=== PATIENT | male | born 1955 | race Caucasian/White ===

== ENCOUNTER 2017-01-07 08:43 | Emergency (ER) | payer OTHER ==
[~2017-01-07 08:43] MED LIST: ATIVAN0.5 MG PO; BENTYL20 MG PO; CIPRO 500MG TA500 MG PO; DICYCLOMINE HCL20 MG PO; DOXYCYCLINE MO100 MG PO; FAMOTIDINE20 MG PO; FLAG500 PO; FLEXERIL10 MG PO; FOLIC ACID 1 MG PO; HYDRALAZINE HYD10 MG PO; LIPITOR 10MG10 MG PO; LISINOPRIL20 M1 PO; LISINOPRIL20 MG PO; LISINOPRIL40 MG PO; METOCLOPRAMIDE10 MG PO; MOTRIN 600 MG600 MG PO; MOTRIN600 MG PO; NORVASC 2.5 MG2.5 MG PO; NORVASC 5MG TAB5 MG PO; PAROXETINE HYDR20 MG; PAROXETINE HYDR20 MG PO; PEPCID 20MG TAB20 MG PO; PERCOCET 325 MG1 TA2 PO; PRILOSEC 20MG C20 MG PO; PROTONIX 40MG T40 MG; PROTONIX 40MG T40 MG PO; RESTASIS 0.4 M0.4 ML OPH; SERTRALINE HYDR50 MG; SERTRALINE HYDR50 MG PO; TYLENOL TAB 32325 MG PO; Theragran Vitamins PO; VITAMIN B1100 MG PO
--- NOTE | 2017-01-07 09:13 | ED GI/GU/ABDOMINAL COMPLAINT ---
History of Present Illness General Chief Complaint: Abdominal Pain/Flank Pain Stated Complaint: ABD PAIN Source: patient, old records Exam Limitations: no limitations Vital Signs & Intake/Output Vital Signs & Intake/Output Vital Signs Date Time Temp Pulse Resp B/P B/P Pulse O2 O2 Flow FiO2 Mean Ox Delivery Rate 01/07 1415 98.2 94 18 168/100 96 Room Air 01/07 1049 92 18 170/95 97 Room Air 01/07 0921 98 Room Air 01/07 0846 97.9 98 16 169/113 98 Room Air Allergies Coded Allergies: hydromorphone (Mild, ITCHING 11/11/15) Reconcile Medications Famotidine (Pepcid) 20 MG TABLET 1 TAB PO BID gastritis Hyoscyamine Sulfate (Levsin-Sl) 0.125 MG TAB.SUBL 1-2 TAB SL Q4P PRN gastritis Lisinopril 20 MG TABLET 1 TAB PO DAILY BP (Reported) Ondansetron (Zofran Odt) 4 MG TAB.RAPDIS 1 TAB SL TID PRN nausea Triage Note: PT C/O ABD PAIN X2 DAYS. STATED HE WAS DRINKING ETOH FOR A FEW DAYS AND WHEN HE STOPPED THE PAIN STARTED. STATED HE STARTED TO VOMIT THIS AM AND HAD BLOOD MIXED IN IT. REPORT HAVING DIARRHEA WELL. DENIES ANY CP/SOB. Triage Nurses Notes Reviewed? yes Onset: Just prior to arrival Duration: hour(s):, constant, continues in ED Timing: recent history Quality/Severity: aching, cramping, moderate, vomiting Location: epigastric Radiation: no radiation Activities at Onset: none Prior Abdominal Problems: none Past Sexual History: Unobtainable at this time No Modifying Factors: none Associated Symptoms: abdominal pain, loss of appetite, nausea/vomiting HPI: 2 weeks prior to admission patient started drinking alcohol again. Several hours prior to admission he developed epigastric burning constant moderate pain loss of appetite nausea vomiting. Reports some blood with vomit. He denies fever chills chest pain cough shortness of breath headache dysuria rash. Past History Travel History Traveled to [place] past 21 day No Medical History Any Pertinent Medical History? see below for history Neurological: NONE EENT: NONE Cardiovascular: hypertension Respiratory: NONE Gastrointestinal: ACID REFLUX Hepatic: NONE Renal: NONE Musculoskeletal: NONE Psychiatric: anxiety, depression, ETOH Endocrine: NONE Blood Disorders: NONE Cancer(s): NONE Other Medical Hx: Kidney stones History of MRSA: No History of VRE: No History of CDIFF: No Surgical History Surgical History: non-contributory Psychosocial History Who do you live with Family Services at Home None What is your primary language Taiwanese Tobacco Use: Never used ETOH Use: occasional use Family History Family History, If Any: MOTHER FH: HTN (hypertension) Hx Contributory? No Review of Systems Review of Systems Constitutional: Reports: no symptoms. EENTM: Reports: no symptoms. Respiratory: Reports: no symptoms. Cardiovascular: Reports: no symptoms. GI: Reports: see HPI, abdominal pain, nausea, vomiting. Genitourinary: Reports: no symptoms. Musculoskeletal: Reports: no symptoms. Skin: Reports: no symptoms. Neurological/Psychological: Reports: no symptoms. Hematologic/Endocrine: Reports: no symptoms. Immunologic/Allergic: Reports: no symptoms. All Other Systems: Reviewed and Negative Physical Exam Physical Exam General Appearance: well developed/nourished, alert, awake, anxious, moderate distress Head: atraumatic, normal appearance Eyes: Bilateral: normal appearance, PERRL, EOMI, normal inspection. Ears, Nose, Throat, Mouth: hearing grossly normal, moist mucous membrane Neck: normal inspection, supple, full range of motion, normal alignment Respiratory: normal breath sounds, chest non-tender, no respiratory distress, quiet respiration, lungs clear Cardiovascular: regular rate/rhythm, normal peripheral pulses, norml femoral pulses equa Peripheral Pulses: 4+ carotid (R), 4+ carotid (L) Gastrointestinal: normal bowel sounds, soft, non-tender, no organomegaly, hernia (right inguinal reducible) Male Genitals: normal genitalia Back: normal inspection, normal range of motion, no vertebral tenderness Extremities: normal range of motion, no ligament instability Neurologic/Psych: no motor/sensory deficits, awake, alert, oriented x 3, normal gait, normal mood/affect Skin: intact, normal color, warm/dry Core Measures ACS in differential dx? No Severe Sepsis Present: No Septic Shock Present: No Progress Differential Diagnosis: biliary colic, gastritis, pancreatitis Plan of Care: Orders Procedure Date/time Status MAGNESIUM 01/07 09 Complete LIPASE 01/07 907 Complete ETHANOL 01/07 907 Complete COMPREHENSIVE METABOLIC PANEL 01/07 907 Complete CBC WITHOUT DIFFERENTIAL 01/07 907 Complete Laboratory Tests 01/07/17 0914: Anion Gap 17 H, Estimated GFR > 60, BUN/Creatinine Ratio 27.5 H, Glucose 115 H, Calcium 8.5, Magnesium 2.4 H, Total Bilirubin 1.1, AST 48, ALT 46, Alkaline Phosphatase 76, Total Protein 7.2, Albumin 4.4, Globulin 2.8, Albumin/Globulin Ratio 1.6, Lipase 140, CBC w Diff NO MAN DIFF REQ, RBC 5.01, MCV 93.5, MCH 31.4 H, RDW 15.1 H, MPV 7.8, Gran % 70.6, Lymphocytes % 21.4, Monocytes % 7.0, Eosinophils % 0.5, Basophils % 0.5, Absolute Granulocytes 5.1, Absolute Lymphocytes 1.5, Absolute Monocytes 0.5, Absolute Eosinophils 0, Absolute Basophils 0, PUBS MCHC 33.6, Serum Alcohol 212.0 Initial ED EKG: none Departure Departure Time of Disposition: 1432 Disposition: HOME OR SELF CARE Condition: Stable Clinical Impression Primary Impression: Acute alcoholic gastritis Referrals: EDINSON DIAS,JAKE Gaston Departure Forms: Customer Survey General Discharge Information RELEASE- WORK Prescriptions: Current Visit Scripts Ondansetron (Zofran Odt) 1 TAB SL TID PRN nausea #15 TAB Famotidine (Pepcid) 1 TAB PO BID #60 TAB Hyoscyamine Sulfate (Levsin-Sl) 1-2 TAB SL Q4P PRN gastritis #30 TAB
[2017-01-07 09:31] LABS: ABSOLUTE BASOPHIL COUNT 0 /CUMM (0.0-0.2); ABSOLUTE EOSINOPHIL COUNT 0 /CUMM (0.0-0.7); ABSOLUTE GRANULOCYTE CT 5.1 /CUMM (1.4-6.5); ABSOLUTE LYMPH COUNT 1.5 /CUMM (1.2-3.4); ABSOLUTE MONOCYTE COUNT 0.5 /CUMM (0.10-0.60); BASOPHIL % 0.5 % (0.0-2.0); EOSINOPHIL % 0.5 % (0-5); GRANULOCYTE % 70.6 % (42.2-75.2); HEMATOCRIT 46.8 % (42-52); MEAN CORPUSCULAR HGB 31.4 PG (27.0-31.0); MEAN CORPUSCULAR HGB CONC 33.6 G/DL (33.0-37.0); MEAN CORPUSCULAR VOLUME 93.5 FL (80.0-94.0); MEAN PLATELET VOLUME 7.8 FL (7.4-10.4); PLATELET COUNT 237 /CUMM (130-400); RBC DISTRIBUTION WIDTH 15.1 % (11.5-14.5); RED BLOOD CELL CT 5.01 /CUMM (4.70-6.10); WHITE BLOOD CELL COUNT 7.2 /CUMM (4.8-10.8)
[2017-01-07 14:15] VITALS: BP 168/100
[2017-01-07] MEDS ORDERED: PEPCID20 M1 PO (14:37)
[2017-01-07] MEDS ORDERED: ZOFRAN ODT4 M1 SL (14:37)
[2017-01-07] MEDS ORDERED: LEVSIN-SL0.125 MG SL (14:37)
== END 2017-01-07 15:47 ==
LOC: ERH 08:43
PROVIDERS: Emergency Medicine
DX: K29.20 Alcoholic gastritis without bleeding (principal)
CPT/HCPCS: 96361; 96365; 96375; 99291; G0480; J0131; J2550; J2765

== ENCOUNTER → 2017-02-02 | Day surgery (SDC) | payer OTHER ==
[~2017-02-02] VITALS: Ht 167.6 cm; Wt 78.5 kg
[~2017-02-02] MED LIST changes: +LEVSIN-SL0.125 MG SL; +LISINOPRIL40 M1 PO; +PEPCID20 M1 PO; +ZOFRAN ODT4 M1 SL
--- NOTE | 2017-02-02 11:23 | Operative Report ---
Operative/Inv Procedure Report Surgery Date: 02/02/17 Name of Procedure: 1. Laparoscopic recurrent right inguinal hernia repair 2. Laparoscopic left inguinal hernia repair Pre-Operative Diagnosis: Bilateral inguinal hernia, right recurrent Post-Operative Diagnosis: Same Estimated Blood Loss: scant Surgeon/Events Manager: EREN DIAS,VALORIE Velazquez/Isha MAR Anesthesia: general endotracheal tube Implants: Parietex mesh Operative Indication: Patient presents with recurrent right inguinal hernia after open repair many years ago. He has a concurrent contralateral hernia as well Operative/Procedure Note Note: After consent patient is brought to the operating room laid supine. General anesthesia was obtained and the abdomen was prepped and draped. Skin was anesthetized with local anesthesia and a transverse infraumbilical incision made sharply. We identified the rectus fascia and incised transversely. Stay sutures were placed. Rectus muscle was retracted laterally and a dissecting balloon placed posterior to it. It was inflated under direct vision the camera and replaced with a blunt Brito port. Gas was instilled. 2, 5 mm ports were placed in the infraumbilical midline after local anesthesia was instilled and under direct vision and camera. Began our dissection at the pubis and delineated the symphysis. Cb's ligament was identified and cleared on the right side. Dissection was difficult due to the inferior epigastric vessels being dissected free from the anterior abdominal wall. We worked her way around it. There was an indirect recurrent hernia. We circumvention dissected the cord structures and delivered an indirect fat-containing hernia. He was reflected medially. Then dissected laterally and developed the iliopubic tract. The cord structures were circumferentially dissected. Once the dissection was completed a right-sided piece of Parietex mesh was placed in the cavity. It was placed around the cord structures re-create the internal ring and cover the femoral and direct spaces as well. It was tacked medially to keep it in proper position while we turned attention to the contralateral side. In a similar fashion coopers ligament and the pubis were delineated. The iliopubic tract was dissected and cord structures circumferentially dissected. There was moderate size indirect fat-containing indirect hernia. The tissue was extracted from the indirect space and reflected medially. A left-sided hernia mesh was placed in a similar fashion. Once I was happy with both sides of the mesh, gas was allowed to escape on maintaining proper orientation of the mesh. The fascia was closed with 0 Vicryl suture. Skin incisions closed with 4-0 Vicryl. Steri-Strips and sterile dressing applied. Sponge and needle counts are correct. Findings: Indirect CC: ALEX DIAS,EDIS Treviño
== END ==
LOC: STS 02:28
DX: K40.91 Unilateral inguinal hernia, without obstruction or gangrene, recurrent (principal); K40.90 Unilateral inguinal hernia, without obstruction or gangrene, not specified as recurrent; I10 Essential (primary) hypertension; M19.90 Unspecified osteoarthritis, unspecified site
CPT/HCPCS: C1781; J0131; J0690; J2250; J2405

== ENCOUNTER 2017-11-11 12:58 | Emergency (ER) | payer OTHER ==
[~2017-11-11] VITALS: Ht 170.2 cm; Wt 83.0 kg
--- NOTE | 2017-11-11 15:09 | ED GI/GU/ABDOMINAL COMPLAINT ---
See Addendum History of Present Illness General Chief Complaint: Abdominal Pain/Flank Pain Stated Complaint: ABD PAIN Source: patient Exam Limitations: no limitations Vital Signs & Intake/Output Vital Signs & Intake/Output Vital Signs Date Time Temp Pulse Resp B/P B/P Pulse O2 O2 Flow FiO2 Mean Ox Delivery Rate 11/11 1536 96.8 70 20 167/93 98 Room Air 11/11 1300 97.0 80 18 155/91 95 Room Air Allergies Coded Allergies: hydromorphone (Mild, ITCHING 11/11/15) Reconcile Medications Lisinopril 40 MG TABLET 1 TAB PO DAILY BP (Reported) Triage Note: 62 Y/O MALE C/O STOMACH"), AND N/V/D X 2 WEEKS. STATES HE IS IN TREATMENT (CHEMO/RADIATION) FOR PROSTATE CANCER AND IS CONCERNED HE HAS AN INFECTION IN HIS INTESTINES. ABLE TO TOLERATE SOME PO INTAKE BUT, AT OTHER TIMES, STATES "IT ALL COMES BACK UP". DENIES URINARY SYMPTOMS. AFEBRILE. Triage Nurses Notes Reviewed? yes Duration: constant, waxing and waning Timing: recent history Severity Numbers: 7 Location: generalized abdomen HPI: Patient is a 62-year-old male with a past medical history of alcohol abuse who states he hasn't drank for over 6 months,, hypertension and a recent diagnosis approximately 4-5 months ago of prostate cancer where he finished his chemotherapy radiation treatment approximately 2 months ago his oncologist is , and presents emergency room with concerns of waxing and waning generalized abdominal pain intermittent episodes of diarrhea, noted bright red blood one week ago which has resolved. Patient can tolerate by mouth with no change in symptoms denies any fever chills chest pain shortness of breath testicular pain or swelling. (Paulino MAR,Alex) Past History Travel History Traveled to [place] past 21 day No Medical History Any Pertinent Medical History? see below for history Neurological: NONE EENT: NONE Cardiovascular: hypertension Respiratory: NONE Gastrointestinal: ACID REFLUX Hepatic: NONE Renal: NONE Musculoskeletal: NONE Psychiatric: anxiety, depression, ETOH Endocrine: NONE Blood Disorders: NONE Cancer(s): prostate cancer Other Medical Hx: Kidney stones History of MRSA: No History of VRE: No History of CDIFF: No Surgical History Surgical History: non-contributory Psychosocial History Who do you live with Family Services at Home None What is your primary language [place] Tobacco Use: Never used Family History Family History, If Any: MOTHER FH: HTN (hypertension) Hx Contributory? No (Alex Hardin) Review of Systems Review of Systems Constitutional: Reports: no symptoms. EENTM: Reports: no symptoms. Respiratory: Reports: no symptoms. Cardiovascular: Reports: no symptoms. GI: Reports: see HPI, abdominal pain. Genitourinary: Reports: no symptoms. Musculoskeletal: Reports: no symptoms. Skin: Reports: no symptoms. Neurological/Psychological: Reports: no symptoms. Hematologic/Endocrine: Reports: no symptoms. Immunologic/Allergic: Reports: no symptoms. All Other Systems: Reviewed and Negative (Alex Hardin) Physical Exam Physical Exam General Appearance: no apparent distress, alert, comfortable Head: atraumatic Eyes: Bilateral: normal appearance. Ears, Nose, Throat, Mouth: hearing grossly normal, moist mucous membrane Neck: normal inspection Respiratory: normal breath sounds, chest non-tender, no respiratory distress Cardiovascular: regular rate/rhythm Gastrointestinal: normal bowel sounds, soft, tenderness Extremities: normal range of motion Neurologic/Psych: no motor/sensory deficits, awake, alert Skin: intact, normal color, warm/dry Core Measures ACS in differential dx? No Sepsis Present: No Sepsis Focused Exam Completed? No (Alex Hardin) Progress Differential Diagnosis: AAA, AMI, appendicitis, biliary colic, bowel obstruction , colon cancer, cholecystitis, diverticulitis, epididymitis, esophageal varices, gastritis, hepatitis, hernia, hemorrhoids, ischemic bowel, inflamm bowel dis, orchitis, pancreatitis, prostatitis, peptic ulcer, PUD/GERD, perforated viscous, pyelonephritis, SBO, testicular torsion, ureterolithiasis, urinary retention, urethritis, UTI/pyelo Plan of Care: Orders Procedure Date/time Status URINALYSIS 11/11 1532 Complete TROPONIN LEVEL 11/11 1312 Complete LIPASE 11/11 1312 Complete LACTIC ACID 11/11 1312 Complete COMPREHENSIVE METABOLIC PANEL 11/11 1312 Complete CBC WITHOUT DIFFERENTIAL 11/11 1312 Complete AMYLASE 11/11 1312 Complete Laboratory Tests 11/11/17 1612: Lactic Acid Cancelled 11/11/17 1549: Urine Color YEL, Urine Clarity CLEAR, Urine pH 6.0, Ur Specific [place] >= 1.030 , Urine Protein NEG, Urine Ketones NEG, Urine Nitrite NEG, Urine Bilirubin NEG, Urine Urobilinogen 0.2, Ur Leukocyte Esterase NEG, Ur Microscopic EXAM NOT REQUIRED, Urine Hemoglobin NEG, Urine Glucose NEG 11/11/17 1545: Anion Gap 11, Estimated GFR > 60, BUN/Creatinine Ratio 25.6 H, Glucose 98, Lactic Acid 0.9, Calcium 9.5, Total Bilirubin 1.0, AST 24, ALT 36, Alkaline Phosphatase 65, Troponin I < 0.01, Total Protein 7.3, Albumin 4.5, Globulin 2.8, Albumin/Globulin Ratio 1.6, Amylase 96, Lipase 177, CBC w Diff NO MAN DIFF REQ, RBC 4.94, MCV 92.8, MCH 30.9, MCHC 33.3, RDW 13.5, MPV 8.5, Gran % 73.5, Lymphocytes % 14.0 L, Monocytes % 6.7, Eosinophils % 5.2 H, Basophils % 0.6, Absolute Granulocytes 4.1, Absolute Lymphocytes 0.8 L, Absolute Monocytes 0.4, Absolute Eosinophils 0.3, Absolute Basophils 0 Patient on initial examination was in no apparent distress resting comfortable at bedside afebrile 1637 - Patient's blood work was unremarkable I reviewed blood work, CT scan currently pending I reviewed all blood work and CT scans with patient patient upon discharge looks well no apparent distress and was strongly advised to follow-up with discharge instructions and plan. Diagnostic Imaging: Viewed by Me: CT Scan. Radiology Impression: no acute abnormality Initial ED EKG: none Comments: PATIENT: MARÍA PEÑA PRESENT AGE: 62 PATIENT ACCOUNT NO: [id number] : 56 LOCATION: [facility] ORDERING PHYSICIAN: Alex MAR SERVICE DATE: 11/11/17 EXAM TYPE: CAT - CT ABD & PELVIS W IV CONTRAST EXAMINATION: CT ABDOMEN AND PELVIS WITH CONTRAST CLINICAL INFORMATION: Abdominal pain. History of prostate cancer. COMPARISON: CT abdomen and pelvis 09/20/2015. TECHNIQUE: Multidetector volumetric imaging was performed of the abdomen and pelvis following IV administration of 95 mL of Optiray 320 intravenous contrast. Sagittal and coronal reformatted images were obtained on the technologist's workstation. DLP: 369 mGy-cm FINDINGS: LUNG BASES: The visualized lung bases are unremarkable. LIVER, GALLBLADDER, AND BILIARY TREE: The liver is normal in size, shape, and attenuation. No focal hepatic lesion or biliary ductal dilatation is present. The gallbladder is unremarkable with no evidence of radiopaque gallstones, gallbladder wall thickening, or obvious pericholecystic inflammatory changes. PANCREAS: Unremarkable. SPLEEN: Unremarkable. ADRENAL GLANDS: Unremarkable. KIDNEYS AND URETERS: Bilateral nephrograms are symmetric without hydronephrosis. No renal or ureteral calculi demonstrated. There is a 0.4 cm hypodense lesion in the lower pole of the left kidney which is too small to characterize on CT scan, statistically benign. BLADDER: Incompletely distended. No focal abnormality. GASTROINTESTINAL TRACT: Bowel gas pattern is nonobstructive. There are scattered clonic diverticula without convincing evidence of diverticulitis. The appendix is nonvisualized. No acute small bowel pathology. ABDOMINAL WALL: No significant hernia is appreciated. Suspect surgical mesh about the bilateral inguinal canals. LYMPH NODES: No bulky adenopathy. VASCULAR: Retroaortic left renal vein. Mild atherosclerotic calcification including coronary artery calcification. PELVIC VISCERA: No free pelvic fluid. The prostate gland measures 4.5 cm in diameter. No discrete prostate mass lesion. OSSEOUS STRUCTURES: No acute osseous abnormalities. Mild multilevel degenerative changes of the spine, with vacuum disc phenomenon at L4-L5. IMPRESSION: 1. No acute intra-abdominal or intrapelvic pathology demonstrated. 2. Scattered colonic diverticula without evidence of diverticulitis. 3. No significant prostatomegaly. No new visceral lesion in the abdomen or pelvis to suggest metastatic disease. 4. No bulky adenopathy. 5. Mild coronary artery calcification. DICTATED BY: Vinod Cannon MD DATE/TIME DICTATED:11/11/171638 (Alex Hardin) Departure Departure Disposition: HOME OR SELF CARE Condition: Stable Clinical Impression Primary Impression: Abdominal pain Referrals: Unknown (PCP/Family) Additional Instructions: As discussed begin [id number] Tylenol or Motrin for pain, follow-up with your oncologist or your primary care doctor if no better in 2 days, if symptoms worsen or if YOU develop any new concerning symptom return to emergency room Departure Forms: Customer Survey General Discharge Information (Alex Hardin) PA/COGNOS ANALYST Co-Sign Statement Statement: ED Attending supervision documentation- [] I saw and evaluated the patient. I have also reviewed all the pertinent lab results and diagnostic results. I agree with the findings and the plan of care as documented in the PA's/COGNOS ANALYST's documentation. [X] I have reviewed the ED Record and agree with the PA's/COGNOS ANALYST's documentation. [] Additions or exceptions (if any) to the PAs/COGNOS ANALYST's note and plan are summarized below: [] (Mariela DIAS,Aaron Mcguire)
[2017-11-11 15:36] VITALS: BP 167/93
[2017-11-11 15:57] LABS: ABSOLUTE BASOPHIL COUNT 0 /CUMM (0.0-0.2); ABSOLUTE EOSINOPHIL COUNT 0.3 /CUMM (0.0-0.7); ABSOLUTE GRANULOCYTE CT 4.1 /CUMM (1.4-6.5); ABSOLUTE LYMPH COUNT 0.8 /CUMM (1.2-3.4); ABSOLUTE MONOCYTE COUNT 0.4 /CUMM (0.10-0.60); BASOPHIL % 0.6 % (0.0-2.0); EOSINOPHIL % 5.2 % (0-5); GRANULOCYTE % 73.5 % (42.2-75.2); HEMATOCRIT 45.9 % (42-52); MEAN CORPUSCULAR HGB 30.9 PG (27.0-31.0); MEAN CORPUSCULAR HGB CONC 33.3 G/DL (33.0-37.0); MEAN CORPUSCULAR VOLUME 92.8 FL (80.0-94.0); MEAN PLATELET VOLUME 8.5 FL (7.4-10.4); PLATELET COUNT 233 /CUMM (130-400); RBC DISTRIBUTION WIDTH 13.5 % (11.5-14.5); RED BLOOD CELL CT 4.94 /CUMM (4.70-6.10); WHITE BLOOD CELL COUNT 5.6 /CUMM (4.8-10.8)
--- NOTE | 2017-11-11 17:03 | CT SCAN REPORT ---
EXAMINATION: CT ABDOMEN AND PELVIS WITH CONTRAST CLINICAL INFORMATION: Abdominal pain. History of prostate cancer. COMPARISON: CT abdomen and pelvis 09/20/2015. TECHNIQUE: Multidetector volumetric imaging was performed of the abdomen and pelvis following IV administration of 95 mL of Optiray 320 intravenous contrast. Sagittal and coronal reformatted images were obtained on the technologist's workstation. DLP: 369 mGy-cm FINDINGS: LUNG BASES: The visualized lung bases are unremarkable. LIVER, GALLBLADDER, AND BILIARY TREE: The liver is normal in size, shape, and attenuation. No focal hepatic lesion or biliary ductal dilatation is present. The gallbladder is unremarkable with no evidence of radiopaque gallstones, gallbladder wall thickening, or obvious pericholecystic inflammatory changes. PANCREAS: Unremarkable. SPLEEN: Unremarkable. ADRENAL GLANDS: Unremarkable. KIDNEYS AND URETERS: Bilateral nephrograms are symmetric without hydronephrosis. No renal or ureteral calculi demonstrated. There is a 0.4 cm hypodense lesion in the lower pole of the left kidney which is too small to characterize on CT scan, statistically benign. BLADDER: Incompletely distended. No focal abnormality. GASTROINTESTINAL TRACT: Bowel gas pattern is nonobstructive. There are scattered clonic diverticula without convincing evidence of diverticulitis. The appendix is nonvisualized. No acute small bowel pathology. ABDOMINAL WALL: No significant hernia is appreciated. Suspect surgical mesh about the bilateral inguinal canals. LYMPH NODES: No bulky adenopathy. VASCULAR: Retroaortic left renal vein. Mild atherosclerotic calcification including coronary artery calcification. PELVIC VISCERA: No free pelvic fluid. The prostate gland measures 4.5 cm in diameter. No discrete prostate mass lesion. OSSEOUS STRUCTURES: No acute osseous abnormalities. Mild multilevel degenerative changes of the spine, with vacuum disc phenomenon at L4-L5. IMPRESSION: 1. No acute intra-abdominal or intrapelvic pathology demonstrated. 2. Scattered colonic diverticula without evidence of diverticulitis. 3. No significant prostatomegaly. No new visceral lesion in the abdomen or pelvis to suggest metastatic disease. 4. No bulky adenopathy. 5. Mild coronary artery calcification.
== END 2017-11-11 17:22 ==
LOC: ERH 12:58
PROVIDERS: Physician Assistant Medical
DX: R19.5 Other fecal abnormalities (principal); R10.84 Generalized abdominal pain
CPT/HCPCS: 74177; 81003; 96374; J1885